=== PATIENT | male | born 1975 | race Caucasian/White ===

== ENCOUNTER 2024-01-07 14:34 | Emergency (ER) | payer BC ==
[~2024-01-07] VITALS: Ht 175.3 cm; Wt 75.0 kg
[2024-01-07 14:41] VITALS: O2SAT 100
[2024-01-07 15:40] LABS: BASOPHILS % 0.2 % (0.0-2.0); EOSINOPHILS % 0.4 % (0.0-5.0); HEMATOCRIT. 46.8 % (42.0-52.0); HEMOGLOBIN. 15.4 g/dL (14.0-18.0); LYMPHOCYTES % 17.2 % (20.0-50.0); MEAN CORPUSCULAR HEMOGLOBIN 30.4 pg (28.0-32.0); MEAN CORPUSCULAR HGB CONC 32.9 g/dL (31.0-37.0); MEAN CORPUSCULAR VOLUME 92.4 fL (80.0-94.0); MEAN PLATELET VOLUME 8.8 fl (7.4-10.4); MONOCYTES % 7.6 % (2.0-8.0); NEUTROPHILS % 74.6 % (40.0-76.0); PLATELET 221 x1000/uL (130-400); RED BLOOD CELL COUNT 5.07 mill/uL (4.7-6.1); RED CELL DISTRIBUTION WIDTH 14.5 % (11.6-14.6); WHITE BLOOD COUNT 8.1 x1000/uL (4.5-11.0)
[2024-01-07 15:52] LABS: CHLORIDE 107 mEq/L (98-107); POTASSIUM 3.9 mEq/L (3.5-5.1); SODIUM 142 mEq/L (136-145)
[2024-01-07 15:53] LABS: CARBON DIOXIDE 29 mEq/L (21-32)
[2024-01-07 15:54] LABS: CALCIUM 9.4 mg/dL (8.7-10.4)
[2024-01-07 15:58] LABS: CREATININE 0.9 mg/dL (0.6-1.3)
[2024-01-07 15:59] LABS: GLUCOSE 103 mg/dL (70-105); UREA NITROGEN BLOOD 12 mg/dL (9-23)
[2024-01-07 16:00] LABS: TROPONIN I HIGH SENSITIVITY < 4 ng/L (3.0-53)
[2024-01-07 17:47] LABS: TROPONIN I HIGH SENSITIVITY < 4 ng/L (3.0-53)
[2024-01-07] MEDS ORDERED: IBUP-2029 MT (18:01)
[2024-01-07 18:10] VITALS: BP 131/84; PULSE 66; RESP 16; TEMP 98.2
== END 2024-01-07 18:20 | disposition home or self-care (01) ==
LOC: ER 14:34
DX: R09.1 Pleurisy (principal)
CPT/HCPCS: 36415; 71045; 80048; 84484; 85025; 93005; 99285